=== PATIENT | male | born 1960 | race American Indian/Alaskan Native ===

== ENCOUNTER 2018-08-17 05:16 | Emergency (ER) | payer OTHER ==
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
[2018-08-17] MEDS ORDERED: ZOFRAN IV ONE (07:33)
[2018-08-17] MEDS ORDERED: DILAUDID IV ONE ×3 (07:33→12:54)
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
[2018-08-17 08:28] LABS: Basophils % (Auto) 0.1 % (0.0-1.8); Hemoglobin 14.9 gm/dl (11.8-15.2); Lymphocytes # (Auto) 1.8 K/mm3 (1.2-5.4); Lymphocytes % (Auto) 15.5 % (13.4-35.0); Mean Corpuscular HGB Conc 34 % (32-34); Mean Corpuscular Volume 88 fl (84-94); Monocytes # (Auto) 1.1 K/mm3 (0.0-0.8); Monocytes % (Auto) 9.7 % (0.0-7.3); Platelet Count 250 K/mm3 (140-440); Red Blood Count 4.99 M/mm3 (3.65-5.03); Red Cell Distribution Width 14.6 % (13.2-15.2)
[2018-08-17 08:43] LABS: Calcium 9.6 mg/dL (8.4-10.2)
[2018-08-17 08:44] LABS: INR 0.91 (0.87-1.13)
[2018-08-17 08:45] LABS: Creatine Kinase MB 25.5 ng/mL (0.0-4.0); Partial Thromboplastin Time 25.2 Sec. (24.2-36.6)
[2018-08-17] MEDS ORDERED: DILAUDID ONE (11:38)
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
[2018-08-17] MEDS ORDERED: NACL 0.9% 1000 ML 1,000 ML IV ONE ×2 (12:02)
[2018-08-17 12:14] VITALS: BP 132/73
== END 2018-08-17 12:58 | disposition other institution (70) ==
LOC: EEVIPCON 05:16 → ED 05:16
DX: S22.42XA Multiple fractures of ribs, left side, initial encounter for closed fracture (principal); S42.002A Fracture of unspecified part of left clavicle, initial encounter for closed fracture; S42.125A Nondisplaced fracture of acromial process, left shoulder, initial encounter for closed fracture; M62.82 Rhabdomyolysis; J93.83 Other pneumothorax; N28.9 Disorder of kidney and ureter, unspecified; I10 Essential (primary) hypertension; F17.200 Nicotine dependence, unspecified, uncomplicated; V29.49XA Motorcycle driver injured in collision with other motor vehicles in traffic accident, initial encounter; Y93.89 Activity, other specified; Y92.488 Other paved roadways as the place of occurrence of the external cause; Y99.8 Other external cause status
CPT/HCPCS: 36415; 71046; 71250; 74176; 80048; 82550; 82553; 82803; 84484; 85025; 85610; 85730; 86850; 86900; 86901; 93005; 93010; 96374; 96375; 96376; 99285; J1170; J2405; J7030